=== PATIENT | male | born 1970 | race Asian ===

== ENCOUNTER 2017-08-04 15:00 | Emergency (ER) | payer BC ==
[~2017-08-04] VITALS: Ht 167.6 cm; Wt 70.0 kg
[~2017-08-04 15:00] MED LIST: FLON0.053; IBUP600T26 PO; LORA10TA PO
[2017-08-04 15:02] VITALS: BP 130/96; PULSE 89; RESP 15; TEMP 98.4; O2SAT 98
[2017-08-04] MEDS ORDERED: IBUP800T23 PO (17:04)
[2017-08-04] MEDS ORDERED: ACYC800T PO (17:04)
--- NOTE | 2017-08-04 17:06 | PD ---
HPI Chief Complaint: Skin Problem Time Seen by Provider: 17:03 Travel History International Travel<30 days: No Contact w/Intl Traveler<30days: No Traveled to known affect area: No History of Present Illness HPI 36-year-old male presents to the emergency department with complaint of a painful rash to his right flank area 3 days. Denies fever, vomiting. Doesn't know if he had chickenpox as a child. Denies she go vaccination. Has not taken any medications or tried any treatments to alleviate his symptoms. Symptoms are mild in severity. No known allergies. No other modifying factors or associated signs and symptoms. PFSH Social History Tobacco Use: No Allergies-Medications (Allergen,Severity, Reaction): Coded Allergies: No Known Allergies (Unverified , 04/21/14) Reported Meds & Prescriptions Reported Meds & Active Scripts Active Ibuprofen 800 Mg Tab 800 Mg PO Q6HR PRN Acyclovir 800 Mg Tab 800 Mg PO 5 TIMES A DAY 7 Days Review of Systems Except as stated in HPI: all other systems reviewed are Neg Physical Exam Narrative GENERAL: Well-nourished, well-developed male patient, in no acute distress SKIN: Warm and dry. Right flank area with small area of erythremic grouped vesicles present in a dermatomal distribution. No drainage or edema. HEAD: Atraumatic. Normocephalic. EYES: Pupils equal and round. No scleral icterus. No injection or drainage. ENT: Mucosa pink and moist. Airway patent. NECK: Trachea midline. CARDIOVASCULAR: Regular rate. RESPIRATORY: No accessory muscle use. GASTROINTESTINAL: Flat. MUSCULOSKELETAL: No obvious deformities. No clubbing. No cyanosis. No edema. NEUROLOGICAL: Awake and alert. Oriented 3. No obvious cranial nerve deficits. Motor grossly within normal limits. Normal speech. PSYCHIATRIC: Appropriate mood and affect; insight and judgment normal. Data Data Last Documented VS Vital Signs Date Time Temp Pulse Resp B/P (MAP) Pulse Ox O2 Delivery O2 Flow Rate FiO2 08/04/17 15:02 98.4 89 15 130/96 (107) 98 Orders Orders Ibuprofen (Motrin) (08/04/17 17:15) [facility] Medical Decision Making Medical Screen Exam Complete: Yes Emergency Medical Condition: Yes Medical Record Reviewed: Yes Differential Diagnosis Shingles, contact dermatitis, hives Narrative Course 46-year-old male physical exam consistent with shingles rash to his right flank. Patient is afebrile and nontoxic-appearing. Denies fever, vomiting. Ibuprofen administered in the ER. Acyclovir and ibuprofen prescribed for home. Instructed patient to follow up with primary care provider. Patient verbalizes understanding and agreement with treatment plan. Patient is medically cleared and stable for discharge. Discussed reasons to return to the emergency department. Patient agrees with treatment plan. The patients vital signs are stable and the patient is stable for outpatient follow-up and treatment. Patient discharged home, stable and in no acute distress. Diagnosis Primary Impression: Shingles rash Qualified Codes: B02.9 - Zoster without complications Referrals: [employer] Primary Care Physician Patient Instructions: General Instructions, Shingles (ED) Departure Forms: Tests/Procedures, Work Release Enter return to work date: Aug 05, 2017 Additional Instructions: Shingles is contagious Keep area covered with clothing to avoid spreading to others Wash hands frequently Take medications as prescribed Cold, wet compresses to the rash to help relieve itching and pain as needed Cool Bath to help relieve itching and pain as needed Follow-up with a primary care provider Return to the emergency department immediately with worsening of symptoms Med/Other Pt SpecificInfo: Prescription(s) given Scripts Ibuprofen (Ibuprofen) 800 Mg Tab 800 MG PO Q6HR Y for PAIN, #30 TAB 0 Refills Prov: Suni Sanches 08/04/17 Acyclovir (Acyclovir) 800 Mg Tab 800 MG PO 5 TIMES A DAY for Mgmt Viral Infection for 7 Days, TAB 0 Refills Prov: Suni Sanches 08/04/17 Disposition: 01 DISCHARGE HOME Condition: Stable Suni Sanches Aug 04, 2017 17:06
[2017-08-04] MEDS ORDERED: IBUPROFEN 800 MG TAB PO ONE (17:15)
== END 2017-08-04 17:29 | disposition home or self-care (01) ==
LOC: NEPK 15:00
DX: B02.9 Zoster without complications (principal)
CPT/HCPCS: 99283

== ENCOUNTER 2018-04-02 23:59 | Observation (INO) | payer OTHER ==
[~2018-04-02] VITALS: Ht 165.1 cm; Wt 75.5 kg
[~2018-04-02 23:59] MED LIST changes: +ACYC800T PO; -FLON0.053; +IBUP1TAB7 PO; -IBUP600T26 PO; -LORA10TA PO
[2018-04-03] VITALS (10 sets, daily range): BP systolic 118–131; BP diastolic 73–98; PULSE 68–81; RESP 14–17; TEMP 97.4–98.8; O2SAT 96–100
[2018-04-03] MEDS ORDERED: ASPIRIN 81 MG CHEW TAB PO ONE (01:00)
[2018-04-03] MEDS ORDERED: SODIUM CHLORID 0.9% 500 ML INJ 500 ML IV ONE (01:00)
[2018-04-03] MEDS ORDERED: SODIUM CHLORIDE 0.9% FLUSH 10 ML FLUSH IVF PRN (01:00)
[2018-04-03 01:13] LABS: AUTOMATED NEUTROPHIL # 3.2 TH/MM3 (1.8-7.7); BASOPHIL % 0.7 % (0.0-2.0); EOSINOPHIL # 0.2 TH/MM3 (0-0.4); EOSINOPHIL % 3.4 % (0.0-4.0); HEMATOCRIT 26.3 % (39.0-51.0); HEMOGLOBIN 9.7 GM/DL (13.0-17.0); LYMPH % 39.6 % (9.0-44.0); LYMPHOCYTE # 2.6 TH/MM3 (1.0-4.8); MEAN CELL VOLUME 91.8 FL (80.0-100.0); MEAN CORPUSCULAR HEMOGLOBIN 33.8 PG (27.0-34.0); MEAN PLATELET VOLUME 7.2 FL (7.0-11.0); MONO % 6.8 % (0.0-8.0); MONOCYTE # 0.4 TH/MM3 (0-0.9); NEUT % 49.5 % (16.0-70.0); PLATELET COUNT 323 TH/MM3 (150-450); RED BLOOD COUNT 2.86 MIL/MM3 (4.50-5.90); RED CELL DISTRIBUTION WIDTH 12.8 % (11.6-17.2); WHITE BLOOD COUNT 6.5 TH/MM3 (4.0-11.0)
[2018-04-03 01:15] LABS: MEAN CORPUSCULAR HGB CONC 36.8 % (32.0-36.0)
[2018-04-03 01:28] LABS: INTERNATIONAL NORMALIZED RATIO 0.9 RATIO; PROTHROMBIN TIME - PATIENT 9.6 SEC (9.8-11.6)
--- NOTE | 2018-04-03 01:37 | PD ---
HPI Chief Complaint: Chest Pain Time Seen by Provider: 00:50 Travel History International Travel<30 days: No Contact w/Intl Traveler<30days: No Traveled to known affect area: No History of Present Illness HPI Is a 47-year-old male presents emergency department complaining of pressure- like discomfort in his chest as well as fatigue. He states that a couple weeks ago he noticed some abdominal/chest discomfort and had dark stools. He went to his primary doctor who sent him to see Dr. gonzalez to. One week ago he had endoscopy that reportedly showed GERD and he was started on some medication. He states that his dark stools resolved. He states that despite that he has had continued pressure-like discomfort in his chest, worse in the morning, worse with exertion, and sometimes after eating, associated with some shortness of breath. He has still had some abdominal fullness. He complains of significant fatigue, especially when he exerts himself. Symptoms worsened today and so he came to the emergency department. Never had previous symptoms before. No known medical history. Takes no other medications other than the acid medicine he was recently prescribed. History Past Medical History Narrative Medical GERD Past Surgical History Surgical History: No Previous Surgery Social History Alcohol Use: No Tobacco Use: No Allergies-Medications (Allergen,Severity, Reaction): Coded Allergies: No Known Allergies (Unverified Adverse Reaction, Unknown, 04/03/18) Reported Meds & Prescriptions Reported Meds & Active Scripts Active Ibuprofen 800 Mg Tab 800 Mg PO Q6HR PRN Acyclovir 800 Mg Tab 800 Mg PO 5 TIMES A DAY 7 Days Review of Systems Except as stated in HPI: all other systems reviewed are Neg Physical Exam Narrative GENERAL: Well-appearing 47-year-old man, no acute distress. SKIN: Focused skin assessment warm/dry. HEAD: Atraumatic. Normocephalic. EYES: Pupils equal and round. No scleral icterus. No injection or drainage. ENT: No nasal bleeding or discharge. Mucous membranes pink and moist. NECK: Trachea midline. No JVD. CARDIOVASCULAR: Regular rate and rhythm. No murmur appreciated. RESPIRATORY: No accessory muscle use. Clear to auscultation. Breath sounds equal bilaterally. GASTROINTESTINAL: Abdomen soft, non-tender, nondistended. Hepatic and splenic margins not palpable. MUSCULOSKELETAL: No obvious deformities. No clubbing. No cyanosis. No edema. NEUROLOGICAL: Awake and alert. No obvious cranial nerve deficits. Motor grossly within normal limits. Normal speech. PSYCHIATRIC: Appropriate mood and affect; insight and judgment normal. Data Data Last Documented VS Vital Signs Date Time Temp Pulse Resp B/P (MAP) Pulse Ox O2 Delivery O2 Flow Rate FiO2 04/03/18 02:30 79 16 128/82 (97) 100 Room Air 04/03/18 00:08 97.9 Orders Orders Electrocardiogram (04/03/18 ) Electrocardiogram (04/03/18 00:52) Complete Blood Count With Diff (04/03/18 00:52) Comprehensive Metabolic Panel (04/03/18 00:52) Magnesium (Mg) (04/03/18 00:52) Prothrombin Time / Inr (Pt) (04/03/18 00:52) Act Partial Throm Time (Ptt) (04/03/18 00:52) Troponin I (04/03/18 00:52) Ecg Monitoring (04/03/18 00:52) Iv Access Insert/Monitor (04/03/18 00:52) Oximetry (04/03/18 00:52) Oxygen Administration (04/03/18 00:52) Aspirin Chew (Aspirin Chew) (04/03/18 01:00) Sodium Chloride 0.9% Flush (Ns Flush) (04/03/18 01:00) Sodium Chlorid 0.9% 500 Ml Inj (Ns 500 M (04/03/18 01:00) Chest, Pa & Lat (04/03/18 00:52) Labs Laboratory Tests Test 04/03/18 01:00 White Blood Count 6.5 TH/MM3 Red Blood Count 2.86 MIL/MM3 Hemoglobin 9.7 GM/DL Hematocrit 26.3 % Mean Corpuscular Volume 91.8 FL Mean Corpuscular Hemoglobin 33.8 PG Mean Corpuscular Hemoglobin Concent 36.8 % Red Cell Distribution Width 12.8 % Platelet Count 323 TH/MM3 Mean Platelet Volume 7.2 FL Neutrophils (%) (Auto) 49.5 % Lymphocytes (%) (Auto) 39.6 % Monocytes (%) (Auto) 6.8 % Eosinophils (%) (Auto) 3.4 % Basophils (%) (Auto) 0.7 % Neutrophils # (Auto) 3.2 TH/MM3 Lymphocytes # (Auto) 2.6 TH/MM3 Monocytes # (Auto) 0.4 TH/MM3 Eosinophils # (Auto) 0.2 TH/MM3 Basophils # (Auto) 0.0 TH/MM3 CBC Comment AUTO DIFF Differential Comment AUTO DIFF CONFIRMED Prothrombin Time 9.6 SEC Prothromb Time International Ratio 0.9 RATIO Activated Partial Thromboplast Time 25.9 SEC Blood Urea Nitrogen 19 MG/DL Creatinine 0.93 MG/DL Random Glucose 128 MG/DL Total Protein 6.4 GM/DL Albumin 3.4 GM/DL Calcium Level 8.1 MG/DL Magnesium Level 2.2 MG/DL Alkaline Phosphatase 52 U/L Aspartate Amino Transf (AST/SGOT) 30 U/L Alanine Aminotransferase (ALT/SGPT) 29 U/L Total Bilirubin 0.2 MG/DL Sodium Level 143 MEQ/L Potassium Level 3.7 MEQ/L Chloride Level 108 MEQ/L Carbon Dioxide Level 25.4 MEQ/L Anion Gap 10 MEQ/L Estimat Glomerular Filtration Rate 87 ML/MIN Troponin I LESS THAN 0.02 NG/ML MDM Medical Decision Making Medical Screen Exam Complete: Yes Emergency Medical Condition: Yes Interpretation(s) My review of EKG: Normal sinus rhythm at a rate of 74, normal axis, first- degree AV block with a TN interval of 229, no evidence of acute ischemia. LABS CBC remarkable for hemoglobin 9.7 CMP BUN 19 Troponin negative Coags normal Chest x-ray: No acute disease. Differential Diagnosis Anemia, GI bleed, ACS, PE, other Narrative Course Medical decision making This 47-year-old male presents emerged from complaining of pressure-like chest discomfort and fatigue, especially on exertion, with recent history of what sounds like GI bleed but is not entirely clear. Looks well. Not frankly anemic. Will check labs, x-ray, EKG, reassess. FINAL: Patient with moderate anemia, guaiac negative stools, and chest pressure. Recent endoscopy and treatment for GERD. It is unclear if this chest pressure is just epigastric pain from gastritis or reflux. The anemia does not seem profound enough to be causing the symptoms of the dyspnea on exertion and chest pressure. Still some concern for ACS although I think this is less likely. Given the concerns, will admit for observation, serial hemoglobin, serial cardiac enzymes. Spoke with Dr. Muñiz, will place patient in observation. Diagnosis Primary Impression: Chest pain Additional Impression: Anemia Admitting Information Admitting Physician Requests: Lawrence Milian MD April 03, 2018 01:37
[2018-04-03 01:52] LABS: ALKALINE PHOSPHATASE 52 U/L (45-117); ALT (GPT) 29 U/L (12-78); TOTAL BILIRUBIN ADULT 0.2 MG/DL (0.2-1.0); TOTAL PROTEIN 6.4 GM/DL (6.4-8.2); TROPONIN I LESS THAN 0.02 NG/ML (0.02-0.05)
[2018-04-03 01:55] LABS: ALBUMIN 3.4 GM/DL (3.4-5.0); AST (GOT) 30 U/L (15-37); BICARBONATE 25.4 MEQ/L (21.0-32.0); BLOOD UREA NITROGEN 19 MG/DL (7-18); CALCIUM 8.1 MG/DL (8.5-10.1); CHLORIDE 108 MEQ/L (98-107); CREATININE 0.93 MG/DL (0.60-1.30); GLOMERULAR FILTRATION RATE 87 ML/MIN (>89); GLUCOSE,RANDOM 128 MG/DL (74-106); MAGNESIUM 2.2 MG/DL (1.5-2.5); SODIUM (NA) 143 MEQ/L (136-145)
--- NOTE | 2018-04-03 02:10 | RADRPT ---
EXAM DATE/TIME: 04/03/2018 01:33 [place] COMPARISON: No previous studies available for comparison. INDICATIONS : Shortness of breath. MEDICAL HISTORY : None. SURGICAL HISTORY : None. ENCOUNTER: Initial ACUITY: 1 day PAIN SCORE: 0/10 LOCATION: Bilateral chest FINDINGS: PA and lateral views of the chest demonstrate the lungs to be symmetrically aerated without evidence of mass, infiltrate or effusion. The cardiomediastinal contours are unremarkable. Osseous structure s are intact. CONCLUSION: No acute disease. Alberto Ordoñez MD on April 03, 2018 at 2:07 Board Certified Radiologist. This report was verified electronically.
[2018-04-03] MEDS ORDERED: NITROGLYCERIN 0.4 MG SL 25 TABS/BTL SL PRN (03:30)
[2018-04-03] MEDS ORDERED: SODIUM CHLORIDE 0.9% FLUSH 10 ML FLUSH IV FLUSH PRN (03:30)
[2018-04-03 05:06] LABS: TROPONIN I LESS THAN 0.02 NG/ML (0.02-0.05)
[2018-04-03 08:09] LABS: TROPONIN I LESS THAN 0.02 NG/ML (0.02-0.05)
[2018-04-03 08:16] LABS: AUTOMATED NEUTROPHIL # 2.9 TH/MM3 (1.8-7.7); BASOPHIL # 0.1 TH/MM3 (0-0.2); EOSINOPHIL # 0.2 TH/MM3 (0-0.4); EOSINOPHIL % 3.7 % (0.0-4.0); HEMATOCRIT 28.8 % (39.0-51.0); HEMOGLOBIN 10.1 GM/DL (13.0-17.0); MEAN CELL VOLUME 90.8 FL (80.0-100.0); MEAN CORPUSCULAR HEMOGLOBIN 31.8 PG (27.0-34.0); MEAN PLATELET VOLUME 6.6 FL (7.0-11.0); MONO % 7.2 % (0.0-8.0); MONOCYTE # 0.4 TH/MM3 (0-0.9); NEUT % 52.1 % (16.0-70.0); PLATELET COUNT 325 TH/MM3 (150-450); RED BLOOD COUNT 3.17 MIL/MM3 (4.50-5.90); RED CELL DISTRIBUTION WIDTH 13.1 % (11.6-17.2); WHITE BLOOD COUNT 5.5 TH/MM3 (4.0-11.0)
[2018-04-03] MEDS ORDERED: PANTOPRAZOLE SOD 40 MG DELAYED RELEASE TAB PO SCH (09:00)
[2018-04-03] MEDS ORDERED: SODIUM CHLORIDE 0.9% FLUSH 10 ML FLUSH IV FLUSH SCH (09:00)
--- NOTE | 2018-04-03 09:15 | HHI.HP ---
HPI Service [facility] Hospitalists Primary Care Physician Lili Marley MD Admission Diagnosis Chest pain, anemia Chief Complaint: Chest pain Travel History International Travel<30 Days: No Contact w/Intl Traveler <30 Da: No Traveled to Known Affected Are: No History of Present Illness Mr. Fischer is a pleasant 47 y/o [place] male without significant PMH who presented to the ED at [facility] [place] on 04/03/18 with complaints of exertional pressure- like chest discomfort as well as increased fatigue for the last week. Pt has been fairly healthy and typically exercises daily. For the last several weeks he has been walking/running 3-4 miles every day. Prior to that he had been walking 2-3 miles every day. He states 9 days ago he was walking/running on the beach when after about 1 mile he developed some upper abdominal/lower chest pressure and broke out into a cold sweat, which made his stop his exercise routine early. He went home and had three loose, dark stools. He went to his PCP who sent him to see Dr. Poe. Pt underwent evaluation with EGD on 03/30/18 which noted gastritis, esophagitis and small hiatal hernia. Pt was ordered Protonix 20mg po daily. He states that his dark stools resolved, but despite that he has had continued pressure-like discomfort in his chest, worse with exertion, with associated lightheadedness and feeling like he can't catch his breath. He reports that he has had some nausea after eating and some abdominal fullness. He complains of significant fatigue, especially when he exerts himself. The symptoms reportedly seemed worse yesterday which prompted him to be evaluated in the ED. His labs in the ED revealed a Hgb 9.7/Hct 10.1. He had previous blood work on 02/25/18 which noted Hgb 14.9/Hct 45.9 and then repeat labs on 03/26/18 noted a drop in his H/H to 10.4/32.6. In the ED he was noted to be Hemoccult negative. Review of Systems Constitutional: COMPLAINS OF: Dizziness, DENIES: Fever, Chills Eyes: DENIES: Vision loss Ears, nose, mouth, throat: DENIES: Hearing loss Respiratory: DENIES: Cough Cardiovascular: COMPLAINS OF: Chest pain, Dyspnea on Exertion, DENIES: Lower Extremity Edema Gastrointestinal: COMPLAINS OF: Abdominal pain, Nausea, DENIES: Constipation, Diarrhea Genitourinary: DENIES: Hematuria, Dysuria Musculoskeletal: DENIES: Neck pain Integumentary: DENIES: Rash Immunologic/allergic: DENIES: Urticaria Neurologic: COMPLAINS OF: Headache Psychiatric: DENIES: Confusion Past Family Social History Past Medical History Gastritis/esophagitis Hiatal hernia Past Surgical History EGD on 03/30/[address] Poe Reported Medications Laboratory Tests Test 04/03/18 01:00 04/03/18 04:05 04/03/18 06:28 04/03/18 07:50 White Blood Count 6.5 TH/MM3 5.5 TH/MM3 Red Blood Count 2.86 MIL/MM3 3.17 MIL/MM3 Hemoglobin 9.7 GM/DL 10.1 GM/DL Hematocrit 26.3 % 28.8 % Mean Corpuscular Volume 91.8 FL 90.8 FL Mean Corpuscular Hemoglobin 33.8 PG 31.8 PG Mean Corpuscular Hemoglobin Concent 36.8 % 35.0 % Red Cell Distribution Width 12.8 % 13.1 % Platelet Count 323 TH/MM3 325 TH/MM3 Mean Platelet Volume 7.2 FL 6.6 FL Neutrophils (%) (Auto) 49.5 % 52.1 % Lymphocytes (%) (Auto) 39.6 % 36.0 % Monocytes (%) (Auto) 6.8 % 7.2 % Eosinophils (%) (Auto) 3.4 % 3.7 % Basophils (%) (Auto) 0.7 % 1.0 % Neutrophils # (Auto) 3.2 TH/MM3 2.9 TH/MM3 Lymphocytes # (Auto) 2.6 TH/MM3 2.0 TH/MM3 Monocytes # (Auto) 0.4 TH/MM3 0.4 TH/MM3 Eosinophils # (Auto) 0.2 TH/MM3 0.2 TH/MM3 Basophils # (Auto) 0.0 TH/MM3 0.1 TH/MM3 CBC Comment AUTO DIFF DIFF FINAL Differential Comment AUTO DIFF CONFIRMED Prothrombin Time 9.6 SEC Prothromb Time International Ratio 0.9 RATIO Activated Partial Thromboplast Time 25.9 SEC Blood Urea Nitrogen 19 MG/DL Creatinine 0.93 MG/DL Random Glucose 128 MG/DL Total Protein 6.4 GM/DL Albumin 3.4 GM/DL Calcium Level 8.1 MG/DL Magnesium Level 2.2 MG/DL Alkaline Phosphatase 52 U/L Aspartate Amino Transf (AST/SGOT) 30 U/L Alanine Aminotransferase (ALT/SGPT) 29 U/L Total Bilirubin 0.2 MG/DL Sodium Level 143 MEQ/L Potassium Level 3.7 MEQ/L Chloride Level 108 MEQ/L Carbon Dioxide Level 25.4 MEQ/L Anion Gap 10 MEQ/L Estimat Glomerular Filtration Rate 87 ML/MIN Troponin I LESS THAN 0.02 NG/ML LESS THAN 0.02 NG/ML LESS THAN 0.02 NG/ML Total Creatine Kinase 144 U/L 112 U/L Creatine Kinase MB 1.3 NG/ML 1.4 NG/ML Allergies: Coded Allergies: No Known Allergies (Unverified Allergy, Unknown, 04/03/18) Family History Father from CVA Mother with hx of CVA but still living Social History Hx of tobacco use, smoked occasionally for 5-10 years on/off, quit 6 months ago Denies any alcohol or illicit drug use Pt is and has 4 children 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 Pt was born in [place], he has been living in the for the last 10 years, mostly in [place]. Physical Exam Vital Signs Vital Signs Date Time Temp Pulse Resp B/P (MAP) Pulse Ox O2 Delivery O2 Flow Rate FiO2 04/03/18 07:22 98.8 69 16 131/81 (98) 97 04/03/18 06:17 97.4 81 16 127/98 (108) 98 04/03/18 05:23 04/03/18 04:00 74 14 131/74 (93) 100 Room Air 04/03/18 03:00 68 14 118/75 (89) 100 Room Air 04/03/18 02:30 79 16 128/82 (97) 100 Room Air 04/03/18 00:30 100 Room Air 04/03/18 00:26 79 15 127/73 (91) 100 Room Air 04/03/18 00:26 79 17 99 Room Air 04/03/18 00:08 97.9 75 17 130/77 (94) 98 Physical Exam GENERAL: This is a well-nourished, well-developed patient, in no apparent distress. SKIN: No rashes, ecchymoses or lesions. Cool and dry. HEENT: Atraumatic. Normocephalic. No temporal or scalp tenderness. No scleral icterus. Airway patent. NECK: Trachea midline, supple, nontender. CARDIO: Regular. RESP: CTA bilaterally. No wheezes, rales, or rhonchi. ABD: +BS, soft, non-tender, nondistended. EXT: Extremities without clubbing, cyanosis, or edema. NEURO: Awake and alert. Motor and sensory grossly within normal limits. Normal speech. Laboratory Laboratory Tests Test 04/03/18 01:00 04/03/18 04:05 04/03/18 06:28 04/03/18 07:50 White Blood Count 6.5 5.5 Red Blood Count 2.86 3.17 Hemoglobin 9.7 10.1 Hematocrit 26.3 28.8 Mean Corpuscular Volume 91.8 90.8 Mean Corpuscular Hemoglobin 33.8 31.8 Mean Corpuscular Hemoglobin Concent 36.8 35.0 Red Cell Distribution Width 12.8 13.1 Platelet Count 323 325 Mean Platelet Volume 7.2 6.6 Neutrophils (%) (Auto) 49.5 52.1 Lymphocytes (%) (Auto) 39.6 36.0 Monocytes (%) (Auto) 6.8 7.2 Eosinophils (%) (Auto) 3.4 3.7 Basophils (%) (Auto) 0.7 1.0 Neutrophils # (Auto) 3.2 2.9 Lymphocytes # (Auto) 2.6 2.0 Monocytes # (Auto) 0.4 0.4 Eosinophils # (Auto) 0.2 0.2 Basophils # (Auto) 0.0 0.1 CBC Comment AUTO DIFF DIFF FINAL Differential Comment AUTO DIFF CONFIRMED Prothrombin Time 9.6 Prothromb Time International Ratio 0.9 Activated Partial Thromboplast Time 25.9 Blood Urea Nitrogen 19 Creatinine 0.93 Random Glucose 128 Total Protein 6.4 Albumin 3.4 Calcium Level 8.1 Magnesium Level 2.2 Alkaline Phosphatase 52 Aspartate Amino Transf (AST/SGOT) 30 Alanine Aminotransferase (ALT/SGPT) 29 Total Bilirubin 0.2 Sodium Level 143 Potassium Level 3.7 Chloride Level 108 Carbon Dioxide Level 25.4 Anion Gap 10 Estimat Glomerular Filtration Rate 87 Troponin I LESS THAN 0.02 LESS THAN 0.02 LESS THAN 0.02 Total Creatine Kinase 144 112 Creatine Kinase MB 1.3 1.4 Result Diagram: 04/03/18 0750 04/03/18 0100 Imaging Last Impressions Chest X-Ray 04/03/18 0052 Signed Impressions: Service Date/Time: Tuesday, April 03, 2018 01:33 - CONCLUSION: No acute disease. MD Ilsa Colin VTE Risk Assessment Ilsa VTE Risk Assessment: No/Low Risk (score <= 1) Caprini Risk Assessment Model Point Value = 1 Point Value = 2 Point Value = 3 Point Value = 5 Age 41-60 Minor surgery BMI > 25 kg/m2 Swollen legs Varicose veins or History of unexplained or recurrent spontaneous Oral contraceptives or hormone replacement Sepsis (< 1 month) Serious lung disease, including pneumonia (< 1 month) Abnormal pulmonary function Acute myocardial infarction Congestive heart failure (< 1 month) History of inflammatory bowel disease Medical patient at bed rest Age 61-74 Arthroscopic surgery Major open surgery (> 45 min) Laparoscopic surgery (> 45 min) Malignancy Confined to bed (> 72 hours) Immobilizing plaster cast Central venous access Age >= 75 History of VTE Family history of VTE Factor V Leiden Prothrombin [id number] Lupus anticoagulant Anticardiolipin antibodies Elevated serum homocysteine Heparin-induced thrombocytopenia Other congenital or acquired thrombophilia Stroke (< 1 month) Elective arthroplasty Hip, pelvis, or leg fracture Acute spinal cord injury (< 1 month) Prophylaxis Regimen Total Risk Factor Score Risk Level Prophylaxis Regimen 0-1 Low Early ambulation 2 Moderate Order ONE of the following: *Sequential Compression Device (SCD) *Heparin 5000 units SQ BID 3-4 Higher Order ONE of the following medications: *Heparin 5000 units SQ TID *Enoxaparin/Lovenox 40 mg SQ daily (WT < 150 kg, CrCl > 30 mL/min) *Enoxaparin/Lovenox 30 mg SQ daily (WT < 150 kg, CrCl > 10-29 mL/min) *Enoxaparin/Lovenox 30 mg SQ BID (WT < 150 kg, CrCl > 30 mL/min) AND/OR *Sequential Compression Device (SCD) 5 or more Highest Order ONE of the following medications: *Heparin 5000 units SQ TID (Preferred with Epidurals) *Enoxaparin/Lovenox 40 mg SQ daily (WT < 150 kg, CrCl > 30 mL/min) *Enoxaparin/Lovenox 30 mg SQ daily (WT < 150 kg, CrCl > 10-29 mL/min) *Enoxaparin/Lovenox 30 mg SQ BID (WT < 150 kg, CrCl > 30 mL/min) AND *Sequential Compression Device (SCD) Assessment and Plan Problem List: (1) Chest pain ICD Codes: R07.9 - Chest pain, unspecified Status: Acute Plan: Exertional chest pressure Hx of tobacco use Acute anemia - Pt is a 47 y/o [place] male without significant PMH who presented to the ED at [facility] [place] on 04/03/18 with complaints of exertional pressure-like chest discomfort as well as increased fatigue for the last week. - 9 days ago he was walking/running on the beach when after about 1 mile he developed some upper abdominal/lower chest pressure and broke out into a cold sweat, which made his stop his exercise routine early. He went home and had three loose, dark stools. Pt underwent evaluation with EGD on 03/30/18 which noted gastritis, esophagitis and small hiatal hernia. Pt was ordered Protonix 20mg po daily. He states that his dark stools resolved, but despite that he has had continued pressure-like discomfort in his chest, worse with exertion, with associated lightheadedness and feeling like he can't catch his breath. He reports that he has had some nausea after eating and some abdominal fullness. He complains of significant fatigue, especially when he exerts himself. - His labs in the ED revealed a Hgb 9.7/Hct 10.1. He had previous blood work on 02/25/18 which noted Hgb 14.9/Hct 45.9 and then repeat labs on 03/26/18 noted a drop in his H/H to 10.4/32.6. In the ED he was noted to be Hemoccult negative. - Serial CE are negative. - His symptoms may be related to his drop in his H/H previously at Hgb 14 in just over a month ago and not Hgb 9. Repeat labs this morning with Hgb 10.1 and pt has not been having any further black stools. - We will check Lexiscan to r/o cardiac origin of his chest pressure symptoms. - Monitor H/H - Cont. Protonix 40mg po daily - Supportive care - Further recommendations as the case develops - DVT prophylaxis with SCDs (2) Anemia ICD Codes: D64.9 - Anemia, unspecified Status: Acute Assessment and Plan Patient examined. Assessment and plan formulated with Reyna Bruno PA-C. I agree with the above. complained of chest heaviness and sob....he had to stop walking and he is a very active person. katherine negative. check o2 with exertion. cta pending. will d/c if cta neg and his sx's are improved with ambulation. Reyna Bruno April 03, 2018 09:15 Quinton Bryant MD April 03, 2018 14:42
[2018-04-03] MEDS ORDERED: REGADENOSON INJ 0.4 MG/5 ML SYR ONE (10:38)
--- NOTE | 2018-04-03 12:11 | RADRPT ---
EXAM DATE/TIME: 04/03/2018 10:30 [facility] COMPARISON: CHEST PA & LAT, April 03, 2018, 1:33. INDICATIONS : Chest pressure with fatigue. Angina. DOSE: 25.9 mCi Tc99m Myoview at stress. 8.5 mCi Tc99m Myoview at rest. 0.4 mg Lexiscan STRESS SYMPTOMS: Shortness of breath, chest pressure, stomach burning, nausea. EJECTION FRACTION: > 70% MEDICAL HISTORY : Hypertension. Gastroesophageal reflux disease. SURGICAL HISTORY : None. ENCOUNTER: Initial ACUITY: 2 weeks PAIN SCALE: 3/10 LOCATION: chest TECHNIQUE: The patient underwent pharmacologic stress with infusion of prescribed dose. Continuous ECG tracing was monitored during stress. Gated SPECT imaging was performed after stress and conventional SPECT i maging was performed at rest. The examination was performed on a SPECT/CT scanner, both attenuation and non-corrected datasets were reviewed. FINDINGS: DISTRIBUTION: The maximum perfused segment at stress is in the septal region. PERFUSION STUDY: The pattern of perfusion at stress is within normal limits. No fixed or reversible perfusion defect i s identified. GATED STUDY: There is intact wall motion and thickening without hypokinetic or dyskinetic segments. CONCLUSION: 1. No fixed or reversible perfusion defect is identified. 2. Normal left ventricle wall motion and ejection fraction. RISK CATEGORY: Low (<1% Annual Mortality Rate) Alberto Peralta MD on April 03, 2018 at 12:07 Board Certified Radiologist. This report was verified electronically.
--- NOTE | 2018-04-03 15:08 | EKG ---
Date Performed: 04/03/2018 Time Performed: 00:39:10 PTAGE: 47 years EKG: Sinus rhythm WITH FIRST DEGREE AV BLOCK ABNORMAL ECG NO PREVIOUS TRACING DOCTOR: Alfred De Los Santos Interpretating Date/Time 04/03/2018 15:07:03
--- NOTE | 2018-04-03 15:10 | EKG ---
Date Performed: 04/03/2018 Time Performed: 04:09:30 PTAGE: 47 years EKG: Sinus rhythm WITH FIRST DEGREE AV BLOCK NONSPECIFIC T-WAVE ABNORMALITY Since previous tracing, no significant jesse nge noted ABNORMAL ECG PREVIOUS TRACING : 04/03/2018 00.39 DOCTOR: Alfred De Los Santos Interpretating Date/Time 04/03/2018 15:10:26
--- NOTE | 2018-04-03 15:11 | EKG ---
Date Performed: 04/03/2018 Time Performed: 06:35:46 PTAGE: 47 years EKG: Sinus rhythm WITH FIRST DEGREE AV BLOCK Since previous tracing, no significant change noted ABNORMAL ECG PREVIOUS TRACING : 04/03/2018 04.09 DOCTOR: Alfred De Los Santos Interpretating Date/Time 04/03/2018 15:10:37
[2018-04-03] MEDS ORDERED: IOHEXOL 350 MG/ML 10 ML VIAL (for RAD DIAG) IVCONTRAST ONE (16:00)
--- NOTE | 2018-04-03 16:21 | RADRPT ---
EXAM DATE/TIME: 04/03/2018 15:55 [facility] COMPARISON: No previous studies available for comparison. INDICATIONS : Shortness of breath and chest pain today. IV CONTRAST: 56 cc Omnipaque 350 (iohexol) IV RADIATION DOSE: 8.47 CTDIvol (mGy) MEDICAL HISTORY : Cardiovascular disease. Hypertension. Gastroesophageal reflux disease. SURGICAL HISTORY : None. ENCOUNTER: Initial ACUITY: 1 day PAIN SCALE: 2/10 LOCATION: Bilateral chest TECHNIQUE: Volumetric scanning of the chest was performed using a pulmonary embolism protocol MIP images were re constructed. Using automated exposure control and adjustment of the mA and/or kV according to patien t size, radiation dose was kept as low as reasonably achievable to obtain optimal diagnostic quality images. DICOM format image data is available electronically for review and comparison. Follow-up recommendations for detected pulmonary nodules are based at a minimum on nodule size and pa tient risk factors according to Fleischner Society Guidelines. FINDINGS: PULMONARY ARTERIES: No filling defects are seen in the pulmonary arteries through the segmental level. LUNGS: There is no consolidation or pneumothorax . No concerning pulmonary nodule is visualized. PLEURAE: There is no pleural thickening or pleural effusion. MEDIASTINUM: There is good visualization of the great vessels of the middle mediastinum. No evidence of mediastin al or hilar adenopathy/mass. MUSCULOSKELETAL: Within normal limits for patient age. MISCELLANEOUS: The visualized upper abdominal organs demonstrate no acute abnormality. CONCLUSION: No evidence of pulmonary embolus. Lungs are clear. Brandt Weaver MD on April 03, 2018 at 16:17 Board Certified Radiologist. This report was verified electronically.
[2018-04-03] MEDS ORDERED: PANT20 PO (16:54)
--- NOTE | 2018-04-03 16:58 | HHI.DCPOC ---
Discharge Care Plan Diagnosis: (1) Chest pain (2) Anemia Goals to Promote Your Health - Patient is to followup with his PCP, Dr. Marley, in 1 week. - Patient is to followup with the professional nursing tutor, Dr. Poe, in 2 weeks for further evaluation of his anemia. - He had an outpatient upper endoscopy and if he continues to be anemic he may need an evaluation with colonoscopy. - Patient will need a recheck of his CBC when he follows up with his PCP. Directions to Meet Your Goals Take your medications as prescribed Follow your dietary instruction Follow activity as directed Keep your appointments as scheduled Take your immunizations and boosters as scheduled If your symptoms worsen call your PCP, if no PCP go to Urgent Care Center or Emergency Room Smoking is Dangerous to Your Health. Avoid second hand smoke Call the 24-hour hour crisis hotline for domestic abuse at [facility]a Bruno April 03, 2018 16:58
== END 2018-04-03 18:32 | disposition home or self-care (01) ==
LOC: NEPE 23:59 → NEDA 04-03 03:26 → NEPGCP 04-03 06:04
PROVIDERS: ADMIT Hospitalist; ATTEND Hospitalist
DX: R07.89 Other chest pain (principal); D64.9 Anemia, unspecified; R94.31 Abnormal electrocardiogram [ECG] [EKG]; K20.9 Esophagitis, unspecified; K29.70 Gastritis, unspecified, without bleeding; K44.9 Diaphragmatic hernia without obstruction or gangrene; Z87.891 Personal history of nicotine dependence; Z82.3 Family history of stroke
CPT/HCPCS: 71046; 71275; 78452; 80053; 82550; 82552; 83735; 84484; 85025; 85610; 85730; 93005; 93017; 96360; 99285; A9502; G0378; J2785; J7040; Q9967